=== PATIENT | male | born 1980 | race Caucasian/White ===

== ENCOUNTER 2016-07-05 09:31 | Emergency (ER) | payer OTHER ==
[~2016-07-05] VITALS: Ht 177.8 cm; Wt 87.0 kg
[~2016-07-05 09:31] MED LIST: HYDR-3533 PO; IBUP-238 PO; PENI250T59 PO; PROM25SU8 PO; ZITH250T PO
[2016-07-05 09:39] VITALS: BP 152/81; PULSE 105; RESP 16; TEMP 97.7
[2016-07-05 09:54] VITALS: RESP 16; O2SAT 96
--- NOTE | 2016-07-05 10:49 | PD ---
HPI Chief Complaint: Injury Time Seen by Provider: 09:52 Travel History International Travel<30 days: No Contact w/Intl Traveler<30days: No Traveled to known affect area: No History of Present Illness HPI Patient is a 36-year-old male presents emergency Department with complaint of right rib pain. Approximately one week ago patient was castrating a cow when he had had at the cow underneath his right armpit. The cow bucked, hitting the patient's right lower chest wall with his head. Since, patient has had pain within this area and feels a popping when he moves. Patient states when he takes a deep breath it hurts, prompting his ER visit. Patient has not been taking anything for pain. He worked out at the gym this morning and states that that actually helps the pain. [facility] Past Medical History Medical History: Denies Significant Hx Diminished Hearing: No Tetanus Vaccination: Unknown Influenza Vaccination: No Past Surgical History Surgical History: No Previous Surgery Social History Alcohol Use: Yes (rare) Tobacco Use: No Substance Use: No Allergies-Medications (Allergen,Severity, Reaction): Coded Allergies: No Known Allergies (Unverified , 07/05/16) Reported Meds & Prescriptions Reported Meds & Active Scripts Active No Active Prescriptions or Reported Medications Review of Systems Except as stated in HPI: all other systems reviewed are Neg Physical Exam Narrative GENERAL: Well-appearing male in no acute distress SKIN: Warm and dry. HEAD: Normocephalic. EYES: No scleral icterus. No injection or drainage. ENT: Mucous membranes pink and moist. NECK: Supple CARDIOVASCULAR: Regular rate and rhythm. No murmur appreciated. Mild reproducible tenderness to palpation of the right lower chest wall without palpable step offs, subcutaneous emphysema, crepitus. No ecchymosis RESPIRATORY: No accessory muscle use. Clear to auscultation. Breath sounds equal bilaterally. GASTROINTESTINAL: Abdomen soft, non-tender, nondistended. MUSCULOSKELETAL: Normal gait NEUROLOGICAL: Awake and alert. Normal speech. PSYCHIATRIC: Appropriate mood and affect; insight and judgment normal. Data Data Last Documented VS Vital Signs Date Time Temp Pulse Resp B/P Pulse Ox O2 Delivery O2 Flow Rate FiO2 07/05/16 09:54 16 96 Room Air 07/05/16 09:39 97.7 105 152/81 Orders Chest, Single Ap (07/05/16 ) [facility] Medical Decision Making Medical Screen Exam Complete: Yes Emergency Medical Condition: Yes Medical Record Reviewed: Yes Differential Diagnosis 36-year-old male here with complaint of chest wall pain for the last week after injury. Differential includes rib fracture, chest wall contusion, hemothorax, pneumothorax. Narrative Course Chest x-ray was obtained that by my read shows no evidence of hemothorax, pneumothorax or obvious rib fracture however will treat empirically as rib fracture given patient's clinical symptoms. He has not required any analgesics today and therefore will not be prescribed any for home. Diagnosis Primary Impression: Rib fracture Referrals: Primary Care Physician as needed Patient Instructions: General Instructions, Rib Fracture (ED) Additional Instructions: Tylenol, ibuprofen as needed for pain. Return to the ER for the warning signs discussed. Med/Other Pt SpecificInfo: No Change to Meds Scripts No Active Prescriptions or Reported Meds Disposition: 01 DISCHARGE HOME Condition: Stable Sara Azevedo MD Jul 05, 2016 10:49
[2016-07-05 11:30] VITALS: BP 138/78
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
== END 2016-07-05 11:32 | disposition home or self-care (01) ==
LOC: PHED 09:31
DX: S22.31XA Fracture of one rib, right side, initial encounter for closed fracture (principal); S27.9XXA Injury of unspecified intrathoracic organ, initial encounter; Y93.K9 Activity, other involving animal care; Y93.9 Activity, unspecified; Y92.9 Unspecified place or not applicable; Y99.9 Unspecified external cause status
CPT/HCPCS: 71010; 99283

== ENCOUNTER 2016-12-15 10:59 | Emergency (ER) | payer OTHER ==
[~2016-12-15] VITALS: Ht 177.8 cm; Wt 87.6 kg
[2016-12-15 11:07] VITALS: BP 146/65; PULSE 66; RESP 18; TEMP 97.5; O2SAT 100
--- NOTE | 2016-12-15 11:41 | PD ---
HPI Chief Complaint: Abdominal Pain Time Seen by Provider: 11:29 Travel History International Travel<30 days: No Contact w/Intl Traveler<30days: No Traveled to known affect area: No History of Present Illness HPI This patient complains of abdominal pain. Location is right lower quadrant. Duration 2 days. Severity is moderate. He had emesis this morning. He has had some diarrhea on and off for the last 6 days. No Alleviating factors. No abdominal surgeries. PFSH Past Medical History Medical History: Denies Significant Hx Diminished Hearing: No Tetanus Vaccination: > 5 Years Influenza Vaccination: No Past Surgical History Surgical History: No Previous Surgery Social History Alcohol Use: Yes (Rarely) Tobacco Use: No Substance Use: No Allergies-Medications (Allergen,Severity, Reaction): Coded Allergies: No Known Allergies (Unverified , 12/15/16) Reported Meds & Prescriptions Reported Meds & Active Scripts Active Zofran (Ondansetron HCl) 4 Mg Tab 4 Mg PO Q6HR PRN Tramadol (Tramadol HCl) 50 Mg Tab 50 Mg PO Q6H PRN Review of Systems General / Constitutional: No: Fever Eyes: No: Visual changes HENT: No: Headaches Cardiovascular: No: Chest Pain or Discomfort Respiratory: No: Shortness of Breath Gastrointestinal: Positive: Nausea, Vomiting, Diarrhea, Abdominal Pain Genitourinary: No: Dysuria Musculoskeletal: No: Pain Skin: No Rash Neurologic: No: Weakness Psychiatric: No: Depression Endocrine: No: Polydipsia Hematologic/Lymphatic: No: Easy Bruising Physical Exam Narrative GENERAL: Well-nourished, well-developed patient in no apparent distress. SKIN: Focused skin assessment reveals no rash and nodules. Skin is Warm and dry. HEAD: Atraumatic. Normocephalic. EYES: Pupils equal and round. No scleral icterus. No injection or drainage. ENT: No nasal bleeding or discharge. Mucous membranes pink and moist. NECK: Trachea midline. No JVD. CARDIOVASCULAR: Regular rate and rhythm. No murmur appreciated. RESPIRATORY: No accessory muscle use. Clear to auscultation. Breath sounds equal bilaterally. GASTROINTESTINAL: Abdomen soft, right lower quadrant is tender without rebound or guarding, nondistended. Hepatic and splenic margins not palpable. MUSCULOSKELETAL: No obvious deformities. No clubbing. No cyanosis. No edema. NEUROLOGICAL: Awake and alert. No obvious cranial nerve deficits. Motor grossly within normal limits. Normal speech. PSYCHIATRIC: Appropriate mood and affect; insight and judgment normal. Data Data Last Documented VS Vital Signs Date Time Temp Pulse Resp B/P Pulse Ox O2 Delivery O2 Flow Rate FiO2 12/15/16 11:07 97.5 66 18 146/65 100 Orders Basic Metabolic Panel (Bmp) (12/15/16 11:37) Complete Blood Count With Diff (12/15/16 11:37) Prothrombin Time / Inr (Pt) (12/15/16 11:37) Act Partial Throm Time (Ptt) (12/15/16 11:37) Ct Abd/Pel W Iv Contrast(Rout) (12/15/16 11:37) Iv Access Insert/Monitor (12/15/16 11:37) Sodium Chloride 0.9% Flush (Ns Flush) (12/15/16 11:45) Ondansetron Inj (Zofran Inj) (12/15/16 11:45) Sodium Chlor 0.9% 1000 Ml Inj (Ns 1000 M (12/15/16 11:45) Ketorolac Inj (Toradol Inj) (12/15/16 12:00) Iohexol 350 Inj (Omnipaque 350 Inj) (12/15/16 12:12) Labs Laboratory Tests Test 12/15/16 11:45 White Blood Count 6.6 TH/MM3 Red Blood Count 5.47 MIL/MM3 Hemoglobin 15.9 GM/DL Hematocrit 46.9 % Mean Corpuscular Volume 85.8 FL Mean Corpuscular Hemoglobin 29.0 PG Mean Corpuscular Hemoglobin 33.8 % Concent Red Cell Distribution Width 11.9 % Platelet Count 348 TH/MM3 Mean Platelet Volume 8.1 FL Neutrophils (%) (Auto) 67.7 % Lymphocytes (%) (Auto) 20.8 % Monocytes (%) (Auto) 9.3 % Eosinophils (%) (Auto) 1.3 % Basophils (%) (Auto) 0.9 % Neutrophils # (Auto) 4.4 TH/MM3 Lymphocytes # (Auto) 1.4 TH/MM3 Monocytes # (Auto) 0.6 TH/MM3 Eosinophils # (Auto) 0.1 TH/MM3 Basophils # (Auto) 0.1 TH/MM3 CBC Comment DIFF FINAL Differential Comment Prothrombin Time 11.8 SEC Prothromb Time International 1.1 RATIO Ratio Activated Partial 26.4 SEC Thromboplast Time Sodium Level 139 MEQ/L Potassium Level 3.9 MEQ/L Chloride Level 102 MEQ/L Carbon Dioxide Level 28.1 MEQ/L Anion Gap 9 MEQ/L Blood Urea Nitrogen 18 MG/DL Creatinine 1.20 MG/DL Estimat Glomerular Filtration 69 ML/MIN Rate Random Glucose 120 MG/DL Calcium Level 9.0 MG/DL MDM Medical Decision Making Medical Screen Exam Complete: Yes Emergency Medical Condition: Yes Medical Record Reviewed: Yes Differential Diagnosis Appendicitis, colitis, gastroenteritis Narrative Course I have reviewed the patient's electronic medical record. IV placed I gave him IV Zofran and 1 L normal saline IV bolus CBC is normal Metabolic profile is normal CT abdomen and pelvis shows no inflammatory changes in the right lower quadrant to suggest appendicitis. The appendix is not specifically identified. Based on lack of inflammatory changes and normal white count and also other things like 6 days of diarrhea my suspicion clinically for appendicitis is not strong enough to warrant observing in the hospital or schedule a repeat visit at this time. He looks clinically well. Coagulation studies are normal I wrote him some tramadol and Zofran to use as needed Recommend primary care follow-up to start Diagnosis Primary Impression: Abdominal pain Qualified Code: R10.31 - Right lower quadrant abdominal pain Additional Impression: Diarrhea Qualified Code: R19.7 - Diarrhea, unspecified type Additional Instructions: The patient was advised to follow up with their physician and return if they worsen. The patient was warned about potential sedation for the medications they will receive on prescription. Med/Other Pt SpecificInfo: Prescription(s) given Scripts Ondansetron (Zofran)4 Mg Tab4 Mg PO Q6HR PRN (NAUSEA OR VOMITING) #12 TAB Ref 0 Prov:Dario Kelsey MD 12/15/16 Tramadol 50 Mg Tab50 Mg PO Q6H PRN (PAIN) #20 TAB Ref 0 Prov:Dario Kelsey MD 12/15/16 Disposition: 01 DISCHARGE HOME Condition: Stable Dario Kelsey MD Dec 15, 2016 11:40
[2016-12-15] MEDS ORDERED: SODIUM CHLOR 0.9% 1000 ML INJ 1,000 ML IV ONE (11:45)
[2016-12-15] MEDS ORDERED: ONDANSETRON HCL 4 MG/2 ML VIAL IVP ONE (11:45)
[2016-12-15] MEDS ORDERED: SODIUM CHLORIDE 0.9% FLUSH 10 ML FLUSH IV FLUSH PRN (11:45)
[2016-12-15] MEDS ORDERED: KETOROLAC TROMETHAMINE 30 MG/ML (IVP) VIAL IV PUSH ONE (12:00)
[2016-12-15 12:06] LABS: AUTOMATED NEUTROPHIL # 4.4 TH/MM3 (1.8-7.7); BASOPHIL # 0.1 TH/MM3 (0-0.2); BASOPHIL % 0.9 % (0.0-2.0); EOSINOPHIL # 0.1 TH/MM3 (0-0.4); EOSINOPHIL % 1.3 % (0.0-4.0); HEMATOCRIT 46.9 % (39.0-51.0); HEMO FLAGS DIFF FINAL; LYMPH % 20.8 % (9.0-44.0); LYMPHOCYTE # 1.4 TH/MM3 (1.0-4.8); MEAN CELL VOLUME 85.8 FL (80.0-100.0); MEAN CORPUSCULAR HGB CONC 33.8 % (32.0-36.0); MONO % 9.3 % (0.0-8.0); NEUT % 67.7 % (16.0-70.0); PLATELET COUNT 348 TH/MM3 (150-450); RED BLOOD COUNT 5.47 MIL/MM3 (4.50-5.90); RED CELL DISTRIBUTION WIDTH 11.9 % (11.6-17.2); WHITE BLOOD COUNT 6.6 TH/MM3 (4.0-11.0)
[2016-12-15] MEDS ORDERED: IOHEXOL 350 MG/ML 10 ML VIAL (for RAD DIAG) IV ONE (12:12)
[2016-12-15 12:15] LABS: POTASSIUM 3.9 MEQ/L (3.5-5.1)
[2016-12-15 12:18] LABS: BICARBONATE 28.1 MEQ/L (21.0-32.0)
[2016-12-15 12:19] LABS: APTT (PATIENT) 26.4 SEC (24.3-30.1); INTERNATIONAL NORMALIZED RATIO 1.1 RATIO; PROTHROMBIN TIME - PATIENT 11.8 SEC (9.8-11.6)
--- NOTE | 2016-12-15 12:25 | RADRPT ---
EXAM DATE/TIME: 12/15/2016 11:55 [facility] COMPARISON: No previous studies available for comparison. INDICATIONS : Right lower quadrant pain. Evaluate for appendicitis. IV CONTRAST: 95 cc Omnipaque 350 (iohexol) IV ORAL CONTRAST: No oral contrast ingested. RADIATION DOSE: 9.76 CTDIvol (mGy) MEDICAL HISTORY : None SURGICAL HISTORY : None. ENCOUNTER: Initial ACUITY: 1 day PAIN SCALE: 5/10 LOCATION: Right lower quadrant TECHNIQUE: Volumetric scanning of the abdomen and pelvis was performed. Using automated exposure control and ad justment of the mA and/or kV according to patient size, radiation dose was kept as low as reasonably achievable to obtain optimal diagnostic quality images. DICOM format image data is available electro nically for review and comparison. FINDINGS: LOWER LUNGS: The visualized lower lungs are clear. LIVER: Homogeneous density without lesion. There is no dilation of the biliary tree. No calcified gallston es. SPLEEN: Normal size without lesion. PANCREAS: Within normal limits. KIDNEYS: Normal in size and shape. There is no mass, stone or hydronephrosis. ADRENAL GLANDS: Within normal limits. VASCULAR: There is no aortic aneurysm. BOWEL/MESENTERY: The cecum is flipped up into the left upper quadrant. Small lymph nodes are seen involving the ileoco lic chain of the mesentery without bulky adenopathy. The appendix is not definitively identified. No inflammatory process is seen to suggest acute appendicitis. No free air or free fluid. Small bowel an d stomach are unremarkable. ABDOMINAL WALL: Within normal limits. RETROPERITONEUM: There is no lymphadenopathy. BLADDER: No wall thickening or mass. REPRODUCTIVE: Within normal limits. INGUINAL: There is no lymphadenopathy or hernia. MUSCULOSKELETAL: Within normal limits for patient age. CONCLUSION: 1. The appendix is not definitively identified but there is no inflammatory process observed to sugge st acute appendicitis. 2. The cecum is flipped up into the left upper quadrant. There are small lymph nodes within the ileoc olic distribution of the mesentery. This could relate to mesenteric adenitis. No acute inflammatory p rocess observed. Lam Comer Jr., MD on December 15, 2016 at 12:19 Board Certified Radiologist. This report was verified electronically.
[2016-12-15] MEDS ORDERED: TRAM50TA PO (13:37)
[2016-12-15] MEDS ORDERED: ZOFR4TAB PO (13:37)
[2016-12-15 14:05] VITALS: BP 133/58; PULSE 92; RESP 16; O2SAT 98
== END 2016-12-15 14:10 | disposition home or self-care (01) ==
LOC: PHED 10:59
DX: R10.31 Right lower quadrant pain (principal); R19.7 Diarrhea, unspecified; R11.10 Vomiting, unspecified
CPT/HCPCS: 74177; 80048; 85025; 85610; 85730; 96361; 96374; 96375; 99285; J1885; J2405; J7030; Q9967